=== PATIENT | male | born 1940 | race Hispanic/Latino ===

== ENCOUNTER 2024-06-01 17:01 | Emergency (ER) | payer MEDICARE ==
[2024-06-01 17:35] LABS: #Basophils 0.03 10x3/uL (0.0-0.2); #Eosinophils 0.01 10x3/uL (0.0-0.5); #Monocytes 0.79 10x3/uL (0.0-1.1); #Neutrophils 6.92 10x3/uL (1.5-8.4); %Basophils 0.3 % (0.0-2.0); %Eosinophils 0.1 % (0.0-6.0); %Lymphocytes 13.9 % (18.0-47.0); %Monocytes 8.7 % (0.0-10.0); %Neutrophils 76.7 % (40.0-75.0); Hematocrit 44.5 % (38.8-50.0); Hemoglobin 14.3 g/dL (13.5-17.5); Mean Corpuscular HGB CONC 32.1 g/dL (32.0-36.0); Mean Corpuscular Volume 93.5 fL (81.2-95.1); Mean Platelet Volume 11.9 fL (7.4-10.4); Platelet Count 164 10x3/uL (150-450); RBC Distribution Width 13.7 % (11.5-14.5); Red Blood Cell (RBC) Count 4.76 10x6/uL (4.32-5.72)
[2024-06-01 17:56] LABS: ALT (SGPT) 174 U/L (8-55); AST (SGOT) 101 U/L (5-34); Alkaline Phosphatase 75 U/L (40-110); Anion Gap 20 mmol/L (10-20); BUN (Urea Nitrogen) 54 mg/dL (8.4-25.7); Bilirubin, Total 1.4 mg/dL (0.2-1.2); Calc. Creatinine Clearance 0 mL/min (70-130); Calcium 9.4 mg/dL (7.8-10.44); Carbon Dioxide 16 mmol/L (23-31); Chloride 107 mmol/L (98-107); Estimated GFR 28; Globulin 3.6 g/dL (2.4-3.5); Glucose 94 mg/dL (83-110); Lipase 75 U/L (8-78); Magnesium 2.7 mg/dL (1.6-2.6); Potassium 5.6 mmol/L (3.5-5.1); Protein, Total 7.6 g/dL (5.8-8.1); Sodium 137 mmol/L (136-145)
[2024-06-01 18:00] LABS: Troponin I 0.058 ng/mL (< 0.028)
[2024-06-01] MEDS ORDERED: Ipratropium/Albuterol 3 ML NEB ONE (18:08)
[2024-06-01] MEDS ORDERED: Morphine 4 MG/ML VIAL ONE (18:29)
[2024-06-01] MEDS ORDERED: Furosemide 40 MG (4 mL) VIAL ONE (18:37)
[2024-06-01 18:48] LABS: INR-International Normal Ratio 1.4; PTT 30.6 sec (22.0-33.0); Prothrombin Time 15.3 sec (9.5-12.1)
[2024-06-01 18:50] LABS: Actual Bicarbonate (HCO3v) 12.4 mEq/L (22-28); Analyzer IN Cardio CS ER; Base Excess -9.3 mEq/L (-2 - +2); Calcium, Ionized (venous) 1.04 mmol/L (1.16-1.32); Chloride (VBG) 106 mmol/L (98-106); Critical Notified By: CP.PH; Hematocrit-VBG 45 % (42.0-52.0); Hemoglobin (Hb) 15.4 g/dL (12.6-17.4); Potassium (VBG) 5.27 mmol/L (3.70-5.30); Puncture Site Other Site; Sodium 136 mmol/L (133-146)
[2024-06-01 18:59] LABS: Bilirubin Neg (Negative); Blood, Urine 25 (Negative); Clarity Clear (Clear); Glucose, Urine (Dipstick) Normal (Negative); Ketone, Urine Negative (Negative); Leukocyte Negative (Negative); Nitrite Negative (Negative); Protein, Urine (Dipstick) 100 mg/dl (Neg-Trace)
[2024-06-01 19:21] LABS: Bacteria/HPF None Seen HPF (None Seen); CAUTI Indications for Culture Fever or rigors; RBC/HPF 0-3 HPF (0-3); Squamous Epithelial 0-3 HPF (0-3); WBC/HPF 0-3 HPF (0-3)
[2024-06-01 19:22] LABS: Urine Culture Reflex No No
== END 2024-06-01 22:02 | disposition short-term general hospital (02) ==
LOC: CSHERS 17:01
DX: I11.0 Hypertensive heart disease with heart failure (principal); I50.9 Heart failure, unspecified; N17.9 Acute kidney failure, unspecified; E87.5 Hyperkalemia; R79.89 Other specified abnormal findings of blood chemistry; I25.10 Atherosclerotic heart disease of native coronary artery without angina pectoris
CPT/HCPCS: 70450; 71045; 73030; 80053; 81001; 82805; 83690; 83735; 83880; 84484; 85025; 85610; 85730; 87428; 93005; 94640; 94760; J1940; J2272; 96374; J7620